=== PATIENT | female | born 1980 | race Caucasian/White ===

== ENCOUNTER 2017-10-05 09:09 | Day surgery (SDC) | payer BC ==
[2017-10-05] MEDS ORDERED: NS 0.9% 1000 ML* 2,000 ML IV ONE (11:00)
[2017-10-05] MEDS ORDERED: Morphine VIAL* 4 MG/ML VIAL (1 ml vial) IV ONE ×2 (11:00→15:12)
[2017-10-05] MEDS ORDERED: Ondansetron ODT TAB* 4 MG PO ONE (11:00)
[2017-10-05 11:32] LABS: INR 0.85 (0.77-1.02)
[2017-10-05 11:33] LABS: ABS Basophils 0 10^3/ul (0-0.2); ABS Eosinophils 0.2 10^3/ul (0-0.6); ABS Lymphocytes 1.8 10^3/ul (1.0-4.8); ABS Monocytes 0.5 10^3/ul (0-0.8); ABS Neutrophils 5.1 10^3/ul (1.5-7.7); ABS Nucleated RBC 0 10^3/ul; Hematocrit 35 % (35-47); Hemoglobin 12.4 g/dl (12.0-16.0); Lymphocyte % 23.1 % (25-47); Mean Corpuscular HGB Conc 35 g/dl (31-36); Mean Corpuscular Hemoglobin 34 pg (27-31); Mean Corpuscular Volume 96 fL (80-97); Mean Platelet Volume 9.2 um3 (7.4-10.4); Nucleated Red Blood Cells % 0.1; Platelet Count 162 10^3/ul (150-450); Red Blood Count 3.66 10^6/ul (4.00-5.40); Red Cell Distribution Width 13 % (10.5-15); White Blood Count 7.6 10^3/ul (3.5-10.8)
[2017-10-05 11:40] LABS: EGFR Non-African American 90.2 (>60)
[2017-10-05 12:20] LABS: Urine Appearance Clear; Urine Blood Negative (Negative); Urine Color Yellow; Urine Ketones Negative (Negative); Urine Protein Negative (Negative); Urine Specific Gravity 1.019 (1.010-1.030); Urine Urobilinogen Negative (Negative)
--- NOTE | 2017-10-05 13:40 | RAD ---
HISTORY: rlq pain COMPARISONS: None TECHNIQUE: Multiple transverse and longitudinal ultrasound images were obtained of the right lower quadrant using grayscale and color Doppler imaging. FINDINGS: The appendix is not visualized. There is small amount free fluid within the right lower quadrant. There is no loculated fluid collection.. IMPRESSION: THE APPENDIX IS NOT VISUALIZED. SMALL AMOUNT OF FREE FLUID WITHIN THE RIGHT LOWER QUADRANT.
--- NOTE | 2017-10-05 13:45 | RAD ---
INDICATION: Right lower quadrant pain COMPARISON: None TECHNIQUE: Longitudinal and transverse transabdominal and transvaginal scans of the pelvis were obtained. FINDINGS: Uterus: The uterus is normal in size. There are no focal masses. The uterus measures 9.0 x 4.2 x 5.1 cm. Endometrial thickness: The endometrial thickness is measured at 1.0 cm. . Free fluid: There is free fluid in the adnexa right greater than left Ovaries: The ovaries are normal in size. The right ovary measures 6.8 x 4.2 x 6.0 cm. The left ovary measures 2.4 x 1.1 x 1.8 cm. There are complex entities in the right ovary one measuring 3.1 x 2.1 x 2.2 cm and the other approximately 6 x 3.2 x 3.7 cm. Doppler interrogation demonstrates flow to each ovary. Other: None IMPRESSION: PRESUMED LARGE HEMORRHAGE CYSTS RIGHT OVARY. THERE IS FREE FLUID. THERE ARE NO FINDINGS OF TORSION. SUGGEST CLOSE IMAGING FOLLOW-UP AND OR GYNECOLOGIC REFERRAL INDICATED.
[2017-10-05] MEDS ORDERED: Sodium Citrate/Citric Acid* 15 ML UDC ONE (16:16)
--- NOTE | 2017-10-05 16:16 | ED ---
Vanessa Obrien Jade, scribed for Demetrius Patterson MD on 10/05/17 at 1052 . Abdominal Pain/Female - HPI Summary HPI Summary: Pt is a 37 y/o female who presents to the ED c/o abdominal pain. She states the pain suddenly started at 2:30 this morning, and is located at her RLQ. She also c/o diarrhea, decreased appetite, and chills. Pain is described as 7-8/10, feels sharp, and is exacerbated by walking, sitting, and going to the bathroom. Last night she had cramps that felt like shooting pain and cramps in her lower abdomen. Pt denies any vaginal discharge, dysuria, fever, N/V, or flank pain. PSHx lymphadenectomy and thyroid removal. Pt recently finished a Z Ren for a possible wisdom teeth infection. FHx ovarian cysts. Denies PMHx of kidney stones or ovarian cysts. - History of Current Complaint Chief Complaint: EDAbdPain Stated Complaint: RT LOWER ABD PAIN Time Seen by Provider: 10/05/17 10:44 Hx Obtained From: Patient Onset/Duration: Sudden Onset, Lasting Hours - 2:30 AM, Still Present Severity Currently: Moderate Pain Intensity: 7 Pain Scale Used: 0-10 Numeric Location: Discrete At: RLQ Radiates: No Aggravating Factor(s): Movement, Other: - Sitting, going to bathroom Alleviating Factor(s): Nothing Associated Signs and Symptoms: Positive: Decreased Appetite, Diarrhea. Negative : Fever, Vaginal Discharge Allergies/Adverse Reactions: Allergies Allergy/AdvReac Type Severity Reaction Status Date / Time amoxicillin Allergy Unknown Verified 10/05/17 13:01 Reaction Details clindamycin Allergy Swelling Verified 10/05/17 13:02 Penicillins Allergy Unknown Verified 10/05/17 13:02 Reaction Details Home Medications: Home Medications Ibuprofen TAB* [Motrin TAB* 800 MG] 800 mg PO Q4H PRN 10/05/17 [History Confirmed 10/05/17] Levothyroxine TAB* [Synthroid TAB*] 175 mcg PO DAILY 10/05/17 [History Confirmed 10/05/17] PMH/Surg Hx/FS Hx/Imm Hx Endocrine/Hematology History: Denies: Hx Diabetes Cardiovascular History: Denies: Hx Hypertension History: Reports: Other Problems/Disorders - NEGATIVE: ovarian cysts Denies: Hx Kidney Stones, Hx Renal Disease - Cancer History Cancer Type, Location and Year: THYROID CA - Surgical History Surgery Procedure, Year, and Place: PARTIAL THYROIDECTOMY Infectious Disease History: No Infectious Disease History: Denies: Traveled Outside the [place] in Last 30 Days - Family History Known Family History: Positive: Other - Ovarian cysts - Social History Alcohol Use: None Substance Use Type: Reports: None Smoking Status (MU): Never Smoked Tobacco Review of Systems Positive: Chills. Negative: Fever Positive: Abdominal Pain - RLQ, Diarrhea, Other - Decreased appetite. Negative : Vomiting, Nausea Negative: dysuria, discharge, flank pain All Other Systems Reviewed And Are Negative: Yes Physical Exam - Summary Physical Exam Summary: General: well-appearing, mild pain distress Skin: warm, color reflects adequate perfusion, dry Head: normal Eyes: EOMI, POLO ENT: normal Neck: supple, nontender Respiratory: CTA, breath sounds present Cardiovascular: RRR Abdomen: soft, tenderness to palpation of RLQ. No masses palpated. Positive obturator sign. Bowel: hypoactive Musculoskeletal: normal, strength/ROM intact Neurological: sensory/motor intact, A&O x3 Psychological: affect/mood appropriate Triage Information Reviewed: Yes Vital Signs On Initial Exam: Initial Vitals Temp Pulse Resp BP Pulse Ox 98.5 F 87 16 129/86 100 10/05/17 09:17 10/05/17 09:17 10/05/17 09:17 10/05/17 09:17 10/05/17 09:17 Vital Signs Reviewed: Yes Diagnostics - Vital Signs Vital Signs Temp Pulse Resp BP Pulse Ox 10/05/17 09:17 98.5 F 87 16 129/86 100 - Laboratory Lab Results: Lab Results 10/05/17 10/05/17 10/05/17 Range/Units 11:13 11:13 11:13 WBC 7.6 (3.5-10.8) 10^3/ul RBC 3.66 L (4.00-5.40) 10^6/ul Hgb 12.4 (12.0-16.0) g/dl Hct 35 (35-47) % MCV 96 (80-97) fL MCH 34 H (27-31) pg MCHC 35 (31-36) g/dl RDW 13 (10.5-15) % Plt Count 162 (150-450) 10^3/ul MPV 9.2 (7.4-10.4) um3 Neut % (Auto) 67.4 (38-83) % Lymph % (Auto) 23.1 L (25-47) % [place] % (Auto) 6.1 (0-7) % Eos % (Auto) 3.0 (0-6) % Baso % (Auto) 0.4 (0-2) % Absolute Neuts (auto) 5.1 (1.5-7.7) 10^3/ul Absolute Lymphs (auto) 1.8 (1.0-4.8) 10^3/ul Absolute Monos (auto) 0.5 (0-0.8) 10^3/ul Absolute Eos (auto) 0.2 (0-0.6) 10^3/ul Absolute Basos (auto) 0 (0-0.2) 10^3/ul Absolute Nucleated RBC 0 10^3/ul Nucleated RBC % 0.1 INR (Anticoag Therapy) 0.85 (0.77-1.02) APTT 30.0 (26.0-36.3) seconds Sodium 139 (135-145) mmol/L Potassium 4.0 (3.5-5.0) mmol/L Chloride 109 (101-111) mmol/L Carbon Dioxide 26 (22-32) mmol/L Anion Gap 4 (2-11) mmol/L BUN 12 (6-24) mg/dL Creatinine 0.73 (0.51-0.95) mg/dL Est GFR ( Amer) 109.2 (>60) Est GFR (Non-Af Amer) 90.2 (>60) BUN/Creatinine Ratio 16.4 (8-20) Glucose 91 (70-100) mg/dL Lactic Acid (0.5-2.0) mmol/L Calcium 8.6 (8.6-10.3) mg/dL Total Bilirubin 0.30 (0.2-1.0) mg/dL AST 15 (13-39) U/L ALT 17 (7-52) U/L Alkaline Phosphatase 39 (34-104) U/L C-Reactive Protein < 1.00 (<8.01) mg/L Total Protein 6.2 L (6.4-8.9) g/dL Albumin 3.9 (3.2-5.2) g/dL Globulin 2.3 (2-4) g/dL Albumin/Globulin Ratio 1.7 (1-3) Lipase 17 (11.0-82.0) U/L Beta HCG, Quant 484.35 mIU/mL Urine Color Urine Appearance Urine pH (5-9) Ur Specific [place] (1.010-1.030) Urine Protein (Negative) Urine Ketones (Negative) Urine Blood (Negative) Urine Nitrate (Negative) Urine Bilirubin (Negative) Urine Urobilinogen (Negative) Ur Leukocyte Esterase (Negative) Urine Glucose (Negative) Blood Type Antibody Screen 10/05/17 10/05/17 10/05/17 Range/Units 11:13 11:13 11:35 WBC (3.5-10.8) 10^3/ul RBC (4.00-5.40) 10^6/ul Hgb (12.0-16.0) g/dl Hct (35-47) % MCV (80-97) fL MCH (27-31) pg MCHC (31-36) g/dl RDW (10.5-15) % Plt Count (150-450) 10^3/ul MPV (7.4-10.4) um3 Neut % (Auto) (38-83) % Lymph % (Auto) (25-47) % [place] % (Auto) (0-7) % Eos % (Auto) (0-6) % Baso % (Auto) (0-2) % Absolute Neuts (auto) (1.5-7.7) 10^3/ul Absolute Lymphs (auto) (1.0-4.8) 10^3/ul Absolute Monos (auto) (0-0.8) 10^3/ul Absolute Eos (auto) (0-0.6) 10^3/ul Absolute Basos (auto) (0-0.2) 10^3/ul Absolute Nucleated RBC 10^3/ul Nucleated RBC % INR (Anticoag Therapy) (0.77-1.02) APTT (26.0-36.3) seconds Sodium (135-145) mmol/L Potassium (3.5-5.0) mmol/L Chloride (101-111) mmol/L Carbon Dioxide (22-32) mmol/L Anion Gap (2-11) mmol/L BUN (6-24) mg/dL Creatinine (0.51-0.95) mg/dL Est GFR ( Amer) (>60) Est GFR (Non-Af Amer) (>60) BUN/Creatinine Ratio (8-20) Glucose (70-100) mg/dL Lactic Acid 0.9 (0.5-2.0) mmol/L Calcium (8.6-10.3) mg/dL Total Bilirubin (0.2-1.0) mg/dL AST (13-39) U/L ALT (7-52) U/L Alkaline Phosphatase (34-104) U/L C-Reactive Protein (<8.01) mg/L Total Protein (6.4-8.9) g/dL Albumin (3.2-5.2) g/dL Globulin (2-4) g/dL Albumin/Globulin Ratio (1-3) Lipase (11.0-82.0) U/L Beta HCG, Quant mIU/mL Urine Color Yellow Urine Appearance Clear Urine pH 6.0 (5-9) Ur Specific [place] 1.019 (1.010-1.030) Urine Protein Negative (Negative) Urine Ketones Negative (Negative) Urine Blood Negative (Negative) Urine Nitrate Negative (Negative) Urine Bilirubin Negative (Negative) Urine Urobilinogen Negative (Negative) Ur Leukocyte Esterase Negative (Negative) Urine Glucose Negative (Negative) Blood Type O Negative Antibody Screen Negative Result Diagrams: 18 11:13 18 11:13 Lab Statement: Any lab studies that have been ordered have been reviewed, and results considered in the medical decision making process. - Ultrasound No standard instances Ultrasound Interpretation Completed By: Radiologist - Transvaginal US 11:01: PRESUMED LARGE HEMORRHAGE CYSTS RIGHT OVARY. THERE IS FREE FLUID. THERE ARE NO FINDINGS OF TORSION. SUGGEST CLOSE IMAGING FOLLOW-UP AND OR GYNECOLOGIC REFERRAL INDICATED. ED physician reviewed radiology report. Appendix US 11: 01: PRESUMED LARGE HEMORRHAGE CYSTS RIGHT OVARY. THERE IS FREE FLUID. THERE ARE NO FINDINGS OF TORSION. SUGGEST CLOSE IMAGING FOLLOW-UP AND OR GYNECOLOGIC REFERRAL INDICATED. ED physician reviewed radiology report. Abdominal Pain Fem Course/Dx - Course Course Of Treatment: DR SZYMANSKI, OBGYN, SAW PATIENT IN ED AND IS TAKING HER TO THE OR. CRITICAL CARE TIME LESS THAN 30 MINUTES. - Diagnoses Provider Diagnoses: Right lower quadrant abdominal pain, Ectopic Discharge - Sign-Out/Discharge Documenting (check all that apply): Discharge/Admit/Transfer - Discharge Plan Condition: Stable Disposition: ADMITTED TO [facility] Referrals: Gabino Ruff MD [Primary Care Provider] - - Billing Disposition and Condition Condition: STABLE Disposition: Admitted to [facility] The documentation as recorded by the Vnaessa solomon Jade accurately reflects the service I personally performed and the decisions made by me, Demetrius Patterson MD.
[2017-10-05] MEDS ORDERED: ceFOXitin(*) 1 GM VIAL ONE (16:22)
[2017-10-05] MEDS ORDERED: Bupivacaine 0.5% SDV PF* 30ML VIAL ONE (16:26)
[2017-10-05] MEDS ORDERED: Lidocaine 2% PF * 5 ML VIAL ONE ×2 (16:26→16:54)
[2017-10-05] MEDS ORDERED: Propofol* 10 MG/ML 20 ML BTL IV PUSH ONE ×2 (16:26→16:54)
[2017-10-05] MEDS ORDERED: fentaNYL* 50 MCG/ML 2 ML VIAL (100 MCG VIAL) ONE ×3 (16:28→17:43)
[2017-10-05] MEDS ORDERED: Rocuronium* 10 MG/ML VIAL ONE ×2 (16:28→16:54)
[2017-10-05] MEDS ORDERED: Naloxone* 0.4 MG/ML 1 ML VIAL IV PRN (17:27)
[2017-10-05] MEDS ORDERED: DiMENhydriNATE IV* 50 MG/ML VIAL IV PUSH PRN (17:27)
[2017-10-05] MEDS ORDERED: fentaNYL* 50 MCG/ML 2 ML VIAL (100 MCG VIAL) IV PRN (17:27)
[2017-10-05] MEDS ORDERED: Ketorolac INJ* 30 MG/ML 1 ML VIAL ONE (17:29)
[2017-10-05] MEDS ORDERED: oxyCODONE/Acetamin 5/325 MG* TAB ONE (18:47)
[2017-10-05 19:06] VITALS: BP 132/92
--- NOTE | 2017-10-06 12:56 | OP ---
DATE OF OPERATION: 10/05/17 [facility] DATE OF : 82 SURGEON: Zoey Lucia MD FARE ENFORCEMENT OFFICER: Dr. Gabino Luis. ANESTHESIOLOGIST: Dr. Watkins. ANESTHESIA: General and local at incisional sites. PRE-OP DIAGNOSIS: Probable right ectopic. POST-OP DIAGNOSIS: Probable right ectopic, hemoperitoneum. OPERATIVE PROCEDURE: Laparoscopic right salpingectomy and removal of Mirena IUD. URINE OUTPUT: Clear yellow urine 100 cc. FLUIDS: Crystalloid 1000 cc. ESTIMATED BLOOD LOSS: Minimum. FINDINGS: Revealed approximately 100 cc of clot in the lower pelvis, normal appearing bowel, normal appearing appendix, normal appearing left tube and ovary , normal appearing right ovary, ectopic appeared to be extruded from the right tube and with rupture of the right fallopian tube near the fimbria. COMPLICATIONS: None apparent. DISPOSITION: Stable to recovery room. DESCRIPTION OF PROCEDURE: The patient was placed in dorsal lithotomy position. Legs were placed in Manteno Meek stirrups. The patient was identified with Manteno protocol for correct procedure, position, and the patient. A self-cath was placed for drainage of 100 cc of clear yellow urine. Self-cath was removed. Sterile speculum was inserted. Cervix was visualized. IUD strings were seen. IUD was removed with blunt forceps without complications and noted to be intact. The single-toothed tenaculum was placed on the anterior lip and a Hulka clamp was then placed. The single-toothed tenaculum was removed. Sterile speculum was removed. Attention was then changed and focused to the abdomen. The umbilical area was injected with 0.5% Marcaine 5 cc. An 11 scalpel blade was used to incise the umbilical area. A 0 Monocryl was placed tag suture on either side of the incision. A Elyssa trocar was placed, confirming excellent placement. Pneumoperitoneum was then created. The side ports were then placed first on the right. 2 cc of 0.5% Marcaine was infused and scalpel was used to make an incision and a 5 mm trocar and trocar sheaths were inserted under direct visualization. This process was repeated on the left with 2.5 cc of 0.5% Marcaine with 5 mm trocar and trocar sheath inserted through incision made with scalpel under direct visualization. Hemoperitoneum was visualized and approximately 100 cc of clot was noted. Suction irrigation was then carried out for removal of clot. It was quite evident that the ectopic had been extruded and partially ruptured the right tube. At that point, it was decided to remove the clot and also the right tube. The right ovary had normal appearance. The removal of the right tube was carried out with a 5-mm LigaSure and then the tube was removed through the 5 -mm port under direct visualization. The clot was suctioned, irrigated, and removed and there was a small portion of clot that was removed with the blunt grasper. Copious lavage was performed and hemostasis was assured at the salpingectomy site and there was no evidence of any lingering clot or evidence of lingering ectopic . The left tube and ovary noted to have a normal appearance. Uterus had a normal appearance. The appendix was visualized and noted to have a normal appearance. The bowel had a healthy appearance. The liver edge had some evidence of reverse. The gall-bladder was seen and noted to have a normal appearance. The liver edge was noted to have some areas of widening, but overall the liver had a normal appearance. Pneumoperitoneum was then released. The 5-mm trocars were then removed under direct visualization. The 10-mm trocar and trocar sheath was removed under direct visualization. The laparoscope and the fascia was reapproximated using the 0 Biosyn stay sutures and a second suture was placed below this for complete occlusion of the fascia. The skin itself was then reapproximated at all 3 incisional sites with a 4-0 Monocryl in a subcuticular fashion. Steri's were then applied and the 4x4 was placed at the umbilical incision. The Hulka clamp was then removed. Hemostasis was noted at all incisional sites and from the vaginal area. The patient was then taken to recovery room in stable condition. All sponge, needle , instrument and blade counts were correct throughout the case. [id number]/[facility] #: [id number] [facility]ENTER[facility]bra[facility]
== END 2017-10-05 19:08 | disposition home or self-care (01) ==
LOC: ED 09:09 → OR 18:05
PROVIDERS: ATTEND Obstetrics & Gynecology
DX: O00.90 Unspecified ectopic pregnancy without intrauterine pregnancy (principal); Z3A.00 Weeks of gestation of pregnancy not specified; Z85.850 Personal history of malignant neoplasm of thyroid; Z88.1 Allergy status to other antibiotic agents
CPT/HCPCS: 36415; 76705; 76830; 80053; 81003; 83605; 83690; 84702; 85025; 85610; 85730; 86140; 86850; 86900; 86901; 88305; 99284; A9270-GY; J0694; J1885; J2270; J2704; J3010